=== PATIENT | female | born 1960 | race Caucasian/White ===

== ENCOUNTER 2018-08-30 07:24 | Day surgery (SDC) | payer BC, OTHER ==
[2018-08-29 17:13] VITALS: BMI 24.2
[2018-08-30] MEDS ORDERED: BUPIVACAINE HCL/PF 0.5% (5MG/ML) 10 ML VIAL ONE (09:49)
[2018-08-30] MEDS ORDERED: LIDOCAINE HCL 1%, 10 MG/ML (20ML VIAL) ONE (09:49)
[2018-08-30] MEDS ORDERED: PROPOFOL 20 ML ONE ×3 (10:13→10:21)
[2018-08-30] MEDS ORDERED: ceFAZolin SODIUM 1 GM VIAL IVPB ONE (10:21)
[2018-08-30] MEDS ORDERED: ceFAZolin SODIUM 1 GM VIAL ONE (10:21)
[2018-08-30] MEDS ORDERED: LIDOCAINE HCL 1%, 10 MG/ML (50 mL VIAL) IJ ONE (10:22)
[2018-08-30] MEDS ORDERED: BUPIVACAINE HCL/PF (5 MG/ML) 30 ML VIAL IJ ONE (10:22)
[2018-08-30 12:00] VITALS: BP 125/78; PULSE 89; TEMP 98.6
--- NOTE | 2018-08-30 13:54 | OP ---
DATE OF OPERATION: 08/30/2018 SURGEON: Sue Ruff DPM PYROMETER TEMPERATURE REGULATOR: Nelsy Mccoy, PGY3 PREOPERATIVE DIAGNOSIS: Left great toenail hyperpigmentation and suspicion of melanoma. POSTOPERATIVE DIAGNOSIS: Left great toenail hyperpigmentation with suspicion of melanoma. PROCEDURE: Left great toenail plate avulsion and nail bed biopsy. ANESTHESIA: Local with MAC. PATHOLOGY: Left great toenail soft tissue biopsy, nail bed biopsy. ESTIMATE BLOOD LOSS: 5 mL. HEMOSTASIS: Left ankle tourniquet at 250 mmHg. MATERIALS USED: Postoperative dressing such as Telfa, 4 x 4, sterile gauze, Kerlix and Gilmer bandage. INJECTABLE: A 1:1 mixture of 1% lidocaine and 0.5% Marcaine plain, 10 mL, used preoperatively and 10 mL of 0.5% Marcaine was injected postoperatively. CONDITION OF THE PATIENT: Stable. COMPLICATIONS: None. DESCRIPTION: The patient was brought to the operating room, placed on the operating table in a supine position. A pneumatic ankle tourniquet was then placed on the patient's left ankle. Following IV sedation local anesthesia was obtained using a 1:1 mixture of 1% lidocaine plain and 0.5% Marcaine plain to the surgical site, left foot. Total of 10 mL was injected preoperatively. Prior to scrubbing the foot the nail plate was avulsed completely and removed from the operative field and sent to Pathology. The left foot was then scrubbed, prepped and draped in the usual aseptic manner. An Esmarch bandage was then utilized to exsanguinate the patient's left foot and the tourniquet was inflated. Attention was first directed to the nail bed at the site of the hyperpigmented areas. A 6-mm punch biopsy was used and the soft tissue from the nail plate was removed with a maximum depth and sent to Pathology, at the area of hyperpigment at the nail plate proximally and sent to Pathology. At this time the left nail plate was then irrigated with copious amount of normal saline with bacitracin in it and postoperative injection which was 10 mL of 0.5% Marcaine was injected throughout the surgical site. At this time postoperative dressing such as Telfa which was applied to the nail bed and dry sterile dressing, Kerlix and Gilmer bandage applied to the left foot. The left ankle tourniquet was then deflated at this time and immediate hyperemia was noted to all the digits of the left foot. Patient tolerated the procedure and anesthesia well and was transferred to the postanesthesia care unit with vital signs stable and vascular status intact to the left lower extremity. The patient will be discharged home once stable per Anesthesia and was already given the instructions and prescriptions which were discussed prior to the surgery. GERMAINE Bruno/[id number]
--- NOTE | 2018-09-07 17:44 | PATH ---
Surgical Pathology Report Patient Name: COLE SHIPMAN [facility]. Rec. #: [id number] /Age/Gender: 1960 (Age: 57) / F Account: [id number] Location: [facility] SURGICAL Taken: 08/30/2018 Received: 08/30/2018 Reported: 09/07/2018 Physicians: Sue Ruff DPM Specimen(s) Received A: NAIL BED BIOPSY LEFT GREAT TOE R/O MELANOMA B: NAIL OF GREAT TOE LEFT R/O MELANOMA Clinical History Left great toe tumor Final Diagnosis A. NAIL, GREAT TOE, LEFT, EXCISION: PORTION OF NAIL AND SCANT ADHERENT NAIL BED WITH FOCAL HYPERGRANULOSIS. ISOLATED FUNGAL FORM IS HIGHLIGHTED BY PAS FUNGAL STAIN. B. NAIL BED, GREAT TOE, LEFT, BIOPSY: NAIL BED WITH SCLEROSIS, FIBROSIS, AND PROMINENT GLOMUS CELLS. NO CARCINOMA, MELANOCYTIC LESION/MELANOMA IDENTIFIED. NO SIGNIFICANT INFLAMMATION IS IDENTIFIED. Comment: Immunohistochemical stains performed at [place], [place] ([id number]) and interpreted at [facility] show isolated melanocytes are highlighted by HMB-45. CD31 highlights vasculature. SMA and Calponin stain glomus cells. Vimentin was utilized to evaluate this case. Additional immunohistochemical stains performed and interpreted at [facility] for S100 and AE1/3 were utilized to evaluate this case. Deeper levels have been examined. Suggest clinical correlation. Case seen interdepartmentally. Electronically Signed Kayley Rowland M.D. Gross Description A. Received in formalin labeled "nail of left great toe rule out melanoma," is a 2.0 x 1.9 x 0.1 cm nathan unguis. No discrete lesion is identified. The nail base (margin) is inked blue and the specimen is serially sectioned. The specimen is entirely and sequentially submitted in 3 cassettes. B. Received in formalin labeled "biopsy of nail bed left great toe," is a 0.5 cm in diameter circular skin punch biopsy excise to depth of 0.1 cm. The base is inked green and the specimen is bisected. The specimen is submitted in toto in one cassette. /08/30/2018 saudi08/30/2018
== END 2018-08-30 12:02 | disposition home or self-care (01) ==
LOC: JASU-SURG 07:24
PROVIDERS: ATTEND Podiatrist Foot Surgery
PROC: 0HBRXZX Excision of Toe Nail, External Approach, Diagnostic (ICD-10-PCS; principal; 2018-08-30 09:30)
DX: D23.72 Other benign neoplasm of skin of left lower limb, including hip (principal); L81.8 Other specified disorders of pigmentation; M79.89 Other specified soft tissue disorders; E11.9 Type 2 diabetes mellitus without complications; Z79.84 Long term (current) use of oral hypoglycemic drugs
CPT/HCPCS: 82962; 88305-TC; 88312-TC; 88341-TC; 88342-TC